=== PATIENT | female | born 1950 | race Two or more races ===

== ENCOUNTER 2023-03-31 08:42 | Outpatient (REF) | payer OTHER, SELFPAY ==
[2023-03-31 10:02] LABS: Alanine Aminotransferase 14 U/L (0-31); Albumin Level 4.1 g/dL (3.5-5.0); Alkaline Phosphatase 63 U/L (39-117); Anion Gap 11 (12-20); Aspartate Amino Transferase 21 U/L (5-31); Bilirubin Direct 0.1 mg/dL (0.0-0.5); Bilirubin Total 0.3 mg/dL (0.0-1.0); Blood Urea Nitrogen 12 mg/dL (9-16); Calcium 9.4 mg/dL (8.4-10.2); Carbon Dioxide 29 mmol/L (22-29); Chloride 111 mmol/L (96-108); Estimated Glomerular Filt Rate > 60; Glucose Random 76 mg/dL (60-115); Potassium 3.5 mmol/L (3.3-5.1); Sodium 147 mmol/L (135-145); Total Protein 7.3 g/dL (6.5-8.0)
[2023-03-31 10:24] LABS: Syphilis Screen Nonreactive (Nonreactive)
[2023-03-31 10:25] LABS: Erythrocyte Sedimentation Rate 18 MM/HR (0-20)
[2023-03-31 10:37] LABS: Folate 10.2 ng/mL (> or = 4.0); Vitamin B12 236 pg/mL (200-900)
[2023-04-02 05:33] LABS: Lyme Abs Screen <0.90 index
[2023-04-06 12:57] LABS: Anti Nuclear Antibody Screen NEGATIVE (NEGATIVE)
== END 2023-03-31 08:43 | disposition home or self-care (01) ==
LOC: HO.LAB 08:42
PROVIDERS: Visit Provider Psychiatry & Neurology Neurology
DX: G93.40 Encephalopathy, unspecified (principal)
CPT/HCPCS: 36415; 80048; 80076; 82607; 82746; 85652; 86038; 86617; 86618; 86780

== ENCOUNTER 2024-12-16 09:45 | Outpatient (AMB) | payer OTHER, SELFPAY ==
--- NOTE | 2024-12-16 09:49 | MHC.OFFVIS ---
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 She was noted to be confused and forgetful and keeping the stove on when family decided to move her here for safety reasons. Since then, she has progressed with more of same symptoms of forgetfulness, confusion, difficulty speaking or coming up with right words, and inability to maintain a conversation with behavioral symptoms), and restless leg syndrome. She was living here with her daughter. She went to [place] to visit her son in 04/2024. While there, she needed emergency surgery where she needed colostemy in 07/2024, complicated by ?pneumonia and PE, and was on vent for period of time. After coming off vent, she had psychosis and did not sleep for weeks. She went to two rehabs in [place] before returning to [place] in 09/2024. Memory has significantly declined since then. She was sometimes getting her daughter and granddaughter mixed up, and had trouble with names. She needed assistance with dressing, or else she put clothes on backward or inside out, and assistance with bathing. She had trouble coming up with and getting stuck with words. She was going to day program Thursday to Thursday, which she enjoyed. She was using walker there, no falls. She sometimes wanders around the house, but does not try to leave. She failed hearing test and they were in process of getting hearing aids. Mood was generally okay, but has some occasional irritability. Her dose of quetiapine was increased to twice a day. If she did not have quetiapine in the morning, she was more irritable and would talk to herself or the doe. She was occasionally incontinent of urine at night, using depends. Sleep was okay. [facility], [facility] Medical History (Updated 12/16/24 @ 09:55 by Alyson Villalobos CNP) RLS (restless legs syndrome) Alzheimer dementia Paraparesis Depression with anxiety Encephalopathy Review of Systems Const Denies chills, Denies daytime sleepiness, Denies difficulty sleeping, Denies fatigue, Denies fever(s), Denies frequent falls, Denies headache(s), Denies increased appetite, Denies poor appetite, Denies snoring, Denies weakness, Denies weight gain and Denies weight loss Eyes Denies loss of vision ENT Denies vertigo, Denies dizziness and Denies headache(s) Card Denies chest pain at rest, Denies chest pain with activity, Denies syncope, Denies leg edema and Denies palpitations Resp Denies snoring GI Denies constipation, Denies heartburn, Denies diarrhea and Denies nausea Denies urinary frequency, Denies urinary incontinence and Denies urinary urgency Musc Denies abnormal gait, Denies numbness and Denies tingling Skin/Breast Denies dry skin and Denies rash Neuro Denies abnormal gait, Denies vertigo, Denies dizziness, Denies syncope, Denies frequent falls, Denies headache(s), Denies lack of coordination, Denies loss of vision, Reports memory loss, Denies numbness, Reports restless legs, Denies seizure-like activity, Denies tingling, Denies paresthesias, Denies tremor(s) and Denies weakness Psych Denies anxiety, Denies depression, Denies auditory hallucinations, Reports memory loss, Denies visual hallucinations and Denies suicidal ideation Endo Denies fatigue and Denies palpitations Physical Exam Const Other: General Appearance:? normal, in no acute distress. Skin:? no rashes, no significant birthmarks. Heart:? S1, S2 normal, no murmurs. Lungs:? clear anteriorly and posteriorly. Extremities:? no edema. Psych:? alert, cooperative with exam. Neuro Other: Mental Status:?Affect is okay. She was able to tell me that she was here with her daughter and her daughter's name. She was able to tell me her age and her month and date. Cranial Nerves:?Pupils are equal, round and reactive to light. External occular muscles are intact. Visual peterson are full. Face is symmetrical. Facial sensations are normal. Tongue is midline. Palate elevates symmetrically. Shoulder shrugging is normal. Hearing to bedside conversation is normal. Motor Examination:?DTRs trace to 1+ in upper extremities, 3+ in knees and ankles with flexor plantars. Harris sign absent. Sensory Exam:?....? Coordination:?No ataxia,?no titubation.? Gait Exam: Within normal limits. Cerebellar Signs:?[id number] is okay. Extrapyramidal System:?No tremor, rigidity with normal facial expressions.? Pronator Drift:?Not present.? Involuntary Movements:?No tremors seen.? Speech:?Normal.? Assessment & Plan Assessment & Plan (1) Alzheimer dementia: Code(s): G30.9 - Alzheimer's disease, unspecified; F02.80 - Dementia in other diseases classified elsewhere, unspecified severity, without behavioral disturbance, psychotic disturbance, mood disturbance, and anxiety Category: Medical Qualifiers: Alzheimer's disease onset: unspecified onset Dementia severity: unspecified severity Dementia behavioral or psychological symptom: with other behavioral disturbance Qualified Code(s): G30.9 - Alzheimer's disease, unspecified; F02.818 - Dementia in other diseases classified elsewhere, unspecified severity, with other behavioral disturbance Plan: Increase memantine 10mg 1 tablet twice a day. Continue quetiapine 25mg 1 tablet twice a day. Stay physically and socially active. (2) RLS (restless legs syndrome): Code(s): G25.81 - Restless legs syndrome Category: Medical Plan . Medications: New memantine 10 mg PO BID 180 tabs 1RF 90 days Coding Level of Care Code Est Pt Level 4 (71235) Diagnoses Alzheimer's dementia with other behavioral disturbance, unspecified dementia severity, unspecified timing of dementia onset G30.9; F02.818 Alzheimer's disease onset: unspecified onset Dementia severity: unspecified severity Dementia behavioral or psychological symptom: with other behavioral disturbance RLS (restless legs syndrome) G25.81
--- OUTSIDE RECORDS SUMMARY | 2024-12-16 09:54 | XMS_ITS | Clinical Summary ---
Author Organization [facility] [address] [facility] Address [address] [place], [place] Phone Care Team Providers Care Mud Jack Nozzle Worker Name Role Phone Suzanne Alonso MD Primary Care Provider [phone] Allergies No known active allergies Medications cyanocobalamin (VITAMIN B-12) 1,000 mcg tabletIndicati ons:B12 deficiency TAKE 1 TABLET BY MOUTH EVERY DAY 90 tablet 1 04/01/20 24 Active atorvastatin (LIPITOR) 10 mg tablet TAKE 1 TABLET BY MOUTH EVERY DAY 90 tablet 1 04/07/20 24 Active QUEtiapine (SEROquel) 25 mg tablet Take 1 tablet (25 mg total) by mouth 2 (two) times a day. Active memantine (NAMENDA) 5 mg tablet Take 1 tablet (5 mg total) by mouth 2 (two) times a day. for 90 days Active calcium carbonate/mag carb (CALCIUM CARB-MAGNESIUM CARB ORAL) Take by mouth. Acti ve latanoprost (XALATAN) 0.005 % ophthalmic solution Administer 1 drop into both eyes 1 (one) time each day. at bedtime 08/17/19 25 Active ketorolac (ACULAR) 0.5 % ophthalmic solution 1 drop 4 (four) times a day. Active Eliquis 5 mg tablet TAKE 1 TABLET BY MOUTH TWICE A DAY 60 tablet 2 11/16/19 25 Active DULoxetine (CYMBALTA) [address] capsule TAKE 1 CAPSULE BY MOUTH EVERY DAY 90 capsule 1 11/29/19 Active DULoxetine (CYMBALTA) [address] capsule TAKE 1 CAPSULE BY MOUTH EVERY DAY 90 capsule 1 06/10/19 025 Discontinued Active Problems Problem Noted Date Diagnosed Date Absence of bladder continence 10/25/2024 Moderate Alzheimer's dementia ([facility] V24, [facility] V28) 10/25/2024 Acute pulmonary embolism ([facility] V24, [facility] V 28) 10/25/2024 Diverticulitis of intestine with perforation 02/2025 Colostomy, evaluate ([facility] V24, [facility] V28) 0 10/04/2024 Colostomy care ([facility] V24, [facility] V28) 2024 Overview (10/25/2024): Had a Colostomy in [place] on 07/16/24 Bilateral renal cysts 06/11/2023 Hyperlipidemia 03/30/2023 Polyneuropathy 12/22/2022 Encounters Date Type Department Care Team Description 12/07/2024 8:45 AM EDT Office Visit [facility] [address] [place] [phone] Tc Mahmood PA Open wound of anterior abdominal wall, subsequent encounter (Primary Dx); Non-pressure chronic ulcer of skin of other sites with fat layer exposed ([facility] V24, [facility] V28) 12/06/2024 3:00 PM EDT Office Visit [facility] Hemat[facility] Oncology [address] [place] [phone] Lenin Ngo MD Acute pulmonary embolism, unspecified pulmonary embolism type, unspecified whether acute cor pulmonale present ([facility] V24, [facility] V28) 11/29/2024 Telephone Adult Medicine [address] [phone] Arnoldo Cardenas LPN 11/22/2024 3:30 PM EDT Office Visit [facility] [address] [place] [phone] Tc Mahmood PA Open wound of anterior abdominal wall, initial encounter (Primary Dx); Non-pressure chronic ulcer of skin of other sites with fat layer exposed ([facility] V24, [facility] V28) 11/22/2024 Telephone Adult Medicine [address] [phone] Suzanne Alonso MD VNA 11/11/2024 12:45 PM EDT Consult [facility] [address] [place] [phone] Tc Mahmood PA Non-pressure chronic ulcer of skin of other sites with fat layer exposed ([facility] V24, [facility] V28) (Primary Dx); Open wound of anterior abdominal wall, initial encounter 11/03/2024 9:15 AM EDT Clinical Support General Surgery [facility] [address] [place] [phone] Joanie Garcia, RN Colostomy care ([facility] V24, [facility] V28) (Primary Dx); Parastomal hernia without obstruction or gangrene 10/25/2024 12:30 PM EDT Office Visit Adult [address] [phone] Suzanne Alonso MD Mixed hyperlipidemia (Primary Dx); Acute pulmonary embolism, unspecified pulmonary embolism type, unspecified whether acute cor pulmonale present ([facility] V24, [facility] V28); Moderate Alzheimer's dementia with other behavioral disturbance, unspecified timing of dementia onset ([facility] V24, [facility] V28); Other urinary incontinence 10/14/2024 Telephone Adult Medicine [address] [phone] Suzanne Alonso MD VNA 10/11/2024 Telephone Adult Medicine [address] [phone] Deanna Valdez LPN Fitting for DME (Form from [place] ? Pt brought in ) 10/06/2024 Telephone Adult Medicine [address] [place] [phone] Suzanne Alonso MD Forms/questionnaires (RMV) 10/06/[address] [phone] Suzanne Alonso MD Forms/questionnaires (FLMA) 10/06/[address] [phone] Suzanne Alonso MD Forms/questionnaires 10/04/2024 4:15 PM EDT Consult General Surgery - [address] [place] [phone] Calvin Emery MD Open wound of anterior abdominal wall, initial encounter (Primary Dx); Colostomy, evaluate ([facility] V24, [facility] V28) 09/27/2024 12:30 PM EDT Office Visit [address] [phone] Suzanne Alonso MD Hospital discharge follow-up (Primary Dx); B12 deficiency; Colon perforation ([facility] V24, [facility] V28); Mixed hyperlipidemia; Vitamin D deficiency; Iron deficiency anemia, unspecified iron deficiency anemia type; Colostomy, evaluate ([facility] V24, [facility] V28); Bacterial infection due to Bacteroides fragilis; Peritonitis due to abscess ([facility] V24, [facility] V28); Acute pulmonary embolism, unspecified pulmonary embolism type, unspecified whether acute cor pulmonale present ([facility] V24, [facility] V28); Pneumonia due to infectious organism, unspecified laterality, unspecified part of lung 09/27/[address] [phone] Arnoldo Cardenas LPN vna 09/27/[address] [phone] Suzanne Alonso MD from Last 3 Months Immunizations Name Administration Dates Next Due Influenza trivalent, 0.5mL ( Fluad) 65yo and older 01/24/2024,03/04/2023 Moderna (age 6mo & older) Bi valent, COVID-19, 0.5 mL or 0.25 mL dosage 09/15/2022,09/05/2021,03/26/2021, 021,06/21/2020 Surgical History Surgery Date Site/Laterality Comments OTHER SURGICAL HISTORY PROCEDURE: DENIES PREVIOUS SURGERY CARDIAC CATH IR EXAM 05/18/2017 - 05/17/2018 BOWEL RESECTION 05/18/2024 - 05/17/2025 COLOSTOMY 05/18/2024 - 05/17/2025 Medical History Medical History Date Comments Polyneuropathy DX:Polyneuropath y Dementia ([facility] V24, [facility] V28) High cholesterol Glaucoma Diverticulosis 2024 Sepsis ([facility] V24, [facility] V28) 2024 Family History Medical History Relation Name Comments Heart disease Mother thyroid issues Diabetes Other HTN Other Relation Name Status Comments Father Mother Other Social History Tobacco Use Types Packs/Day Years Used Date Smoking Tobacco: Never Smokeless Tobacco: Never Tobacco Cessation:Counseling Given: Not Answered Alcohol Use Standard Drinks/Week Comments Not Currently 0 (1 standard drink = 0.6 oz pur e alcohol) Housing Instability Answer Date Recorde d Are you worried that in the next 2 months you may not have stable housing? No 09/21/2024 Food Access & Nutrition Answer Date Rec orded Do you have access to a vari ety of food including fruits and vegetables? Yes 09/21/2024 Access to Healthcare Answer Date Record ed Within the last 3 months, thomas simmons many times did you visit the emergency department for your medical care? 1 09/21/2024 Health Literacy Answer Date Recorded How often do you need to hav e someone help you when you read instructions, pamphlets, or other written material from your doctor or pharmacy? Always 09/21/2024 Caregiver: How often do you need to have someone help you when you read instructions, pamphlets, or other written material from your doctor or pharmacy? Not on file 09/21/2024 Financial Risk Answer Date Recorded How hard is it for you to pa y for the very basics like food, housing, medical care, and air conditioning / heating? Not very hard 09/21/2024 Transportation Answer Date Recorded Has the lack of transportati on kept you from meetings, work, or from getting things needed for daily living? No Has the lack of transportati on kept you from medical appointments or from getting medications? No 09/21/2024 Social Isolation Answer Date Recorded How often do you feel lonely or isolated from th ose around you? Never 09/21/2024 Food Risk Answer Date Recorded Within the past 12 months we worried whether our food would run out before we got money to buy more. Never true 09/21/2024 Within the past 12 months th e food we bought just didn't last and we didn't have money to get more. Never true 09/21/2024 Dependent Care Answer Date Recorded Do you need help finding or paying for care for your loved ones. For example, child care team lead or elderly care for an older adult? No 09/21/2024 Education Answer Date Recorded Do you think completing more education or training, like finishing a GED, going to college, or learning a trade, would be helpful for you? No 09/21/2024 Employment and Income Answer Date Recor ded During the last four weeks, have you been actively looking for work? No 09/21/2024 Living Situation Answer Date Recorded What is your living situation? 0 09/21/2024 Comments No Sex and Gender Information Value Date Recorded Sex Assigned at Not on file Legal Sex Female 8:14 PM EST Gender Identity Not on file Sexual Orientation Not on file Obstetrics History Last Filed Vital Signs Vital Sign Reading Time Taken Comments Blood Pressure 113/58 12/06/2024 3:03 PM EDT Pulse 72 12/07/2024 8:51 AM EDT Temperature 36.2 C (97.1 F) 12/07/2024 8:51 AM EDT Respiratory Rate 18 12/07/2024 8:51 AM EDT Oxygen Saturation 100% 12/07/2024 8:51 AM EDT Inhaled Oxygen Concentration - - Weight 63.5 kg (140 lb) 12/06/2024 3:03 PM EDT Height 154.9 cm (5' 1 ) 12/06/2024 3:03 PM EDT Body Mass Index 26.45 12/06/2024 3:03 PM EDT Plan of Treatment Upcoming Encounters Date Type Department Care Team (Late st Contact Info) Description 12/20/2024 9:00 AM EDT Office Visit Adult Medicine [facility] [address] [place] [phone] Billy Alcocer PA [address] [place] [address] 12/29/2024 9:00 AM EDT Clinical Support [facility] [address] [place] [phone] 02/18/2025 1:00 PM EDT Appointment Radiology Department - [address] [phone] Health Maintenance Due Date Last Done Comments Pneumococcal Vaccine: 50+ Years (1 of 1 - PCV) 2001 Zoster Vaccines (1 of 2) 2001 RSV Immunization Adult Patients (1 - Risk 60-74 years 1-dose series) 2011 Hepatitis C Screening 06/11/2023 Medicare Annual Wellness Visit 06/11/2023 COVID-19 Vaccine ( season) 2024 03/04/2023, 09/15/2022, 09/05/2021, Additional history exists Influenza Vaccine (#1) 2025 01/24/2024, 2022 Social Influencers of Health Screening 09/21/2025 09/21/2024 Falls Risk Assessment 11/11/2025 11/11/2024 Breast Cancer Screening 01/29/2026 01/30/20 24, 01/30/2024, 01/03/2023 Cholesterol Screening (Lipid Panel) 09/30/2029 09/30/2024, 01/27/2024, 01/27/2024 Colorectal Cancer Screening: Colonoscopy 06/03/2033 06/03/2023 Osteoporosis Screening (Bone Density Screening) 10/13/2033 10/14/2023, 10/14/2023 DTaP,Tdap,and Td Vaccines (2 - Td or Tdap) 01/26/2034 01/27/2024 Depression Screening Completed 11/11/2024 HIB Vaccines Aged Out No longer eligi ble based on patient's age to complete this topic HPV Vaccines Aged Out No longer eligi ble based on patient's age to complete this topic Hepatitis A Vaccines Aged Out No long er eligible based on patient's age to complete this topic Hepatitis B Vaccines Aged Out No long er eligible based on patient's age to complete this topic IPV Vaccines Aged Out No longer eligi ble based on patient's age to complete this topic MMR Vaccines Aged Out No longer eligi ble based on patient's age to complete this topic Meningococcal ACWY Vaccine Aged Out N o longer eligible based on patient's age to complete this topic Meningococcal B Vaccine Aged Out No l onger eligible based on patient's age to complete this topic RSV Immunization Patients Under 20 months Aged Out No longer eligible based on patient's age to complete this topic Varicella Vaccines Aged Out No longer eligible based on patient's age to complete this topic Goals Goal Patient Goal Type Associated Problems Recent Progress Patient-Stated? Author Decrease Wound Volume by X% by date (in notes) Care Plan Impaired Tissue Improving( 9:01 AM EDT) No Rachell Lewis RN Patient and Caregiver Understand Wound Care Education Care Plan Impaired Tissue On track( 9:01 AM EDT) No Rachell Lewis RN Wound volume breakdown reduced by X% by week 4 Care Plan Impaired Tissue No Rachell Lewis RN Wound volume breakdown reduced by X% by week 8 Care Plan Impaired Tissue No Rachell Lewis RN Wound volume breakdown reduced by X% by week 12 Care Plan Impaired Tissue No Rachell Lewis RN Quit using tobacco (cigarettes, smokeless, etc) Care Plan Education needed on impact of smoking on wound No Rachell Lewis RN Reduce tobacco use (cigarettes, smokeless, etc) Care Plan Education needed on impact of smoking on wound No Rachell Lewis RN Decrease Wound Volume by X% by date (in notes) Care Plan Education needed on impact of smoking on wound No Rachell Lewis RN Patient and Caregiver Understand Wound Care Education Care Plan Education needed related to ulceration/compr omised skin integrity. No Rachell Lewis RN Procedures Procedure Name Priority Date/Time Associated Diagnosis Comments INTERFERON GAMMA INTERPRETATION Routine 11/15/2024 4:03 PM EDT Screening-pulmonary TB INTERFERON GAMMA ANTIGEN 2 Routine 11/15/2024 4:03 PM EDT Screening-pulmonary TB INTERFERON GAMMA ANTIGEN 1 Routine 11/15/2024 4:03 PM EDT Screening-pulmonary TB INTERFERON GAMMA MITOGEN Routine 11/15/2024 4:03 PM EDT Screening-pulmonary TB INTERFERON GAMMA NIL Routine 11/15/2024 4:03 PM EDT Screening-pulmonary TB INTERFERON GAMMA FOR TB, QUALITATIVE Routine 11/15/2024 4:03 PM EDT Screening-pulmonary TB DEBRIDEMENT Routine 11/11/2024 12:45 PM EDT Open wound of anterior abdominal wall, initial encounter Non-pressure chronic ulcer of skin of other sites with fat layer exposed (CMS/HCC V24, CMS/HCC V28) CBC WITH AUTO DIFFERENTIAL Routine 09/30/2024 8:49 AM EDT Colon perforation (CMS/HCC V24, CMS/HCC V28) CBC AND DIFFERENTIAL Routine 09/30/2024 8:49 AM EDT Colon perforation (CMS/HCC V24, CMS/HCC V28) COMPREHENSIVE METABOLIC PANEL Routine 09/30/2024 8:49 AM EDT Colon perforation (CMS/HCC V24, CMS/HCC V28) LIPID PANEL WITH REFLEX TO DIRECT LDL Routine 09/30/2024 8:49 AM EDT Mixed hyperlipidemia VITAMIN D 25 HYDROXY Routine 09/30/2024 8:49 AM EDT Vitamin D deficiency VITAMIN B12 Routine 09/30/2024 8:49 AM EDT B12 deficiency FERRITIN Routine 09/30/2024 8:49 AM EDT Iron deficiency anemia, unspecified iron deficiency anemia type IRON AND TIBC Routine 09/30/2024 8:49 AM EDT Iron deficiency anemia, unspecified iron deficiency anemia type SCREENING MAMMOGRAPHY BI 2-VIEW BREAST INC CAD Routine 01/30/2024 7:18 AM EDT Encounter for screening mammogram for malignant neoplasm of breast BEBA DEXA AXIAL SKELETON Routine 10/14/2023 5:12 PM EDT Other specified disorders of bone density and structure, right thigh HM COLONOSCOPY Routine 06/03/2023 from Last 3 Months or Most Recently Relevant to Health Maintenance Results * Interferon gamma interpretation (11/15/2024 4:03 PM EDT) [facility] Quantiferon Plus Interpretation Negative Negative LAB CHEMISTRY METHOD 11/17/2024 12:36 PM EDT [facility] Blood Venous blood specimen / Unknown Venipuncture / Unknown 11/15/2024 4:03 PM EDT 11/15/2024 4:03 PM EDT us Suzanne Alonso MD LAB BLOOD ORDERABLES Final Resul t Performing Organization Address City/[facility]/ZIP Co de Phone Number [facility] [address] [place] [address], [place] [phone] * Interferon gamma antigen 2 (11/15/2024 4:03 PM EDT) Blood Venous blood specimen / Unknown Venipuncture / Unknown 11/15/2024 4:03 PM EDT 11/15/2024 4:03 PM EDT us Suzanne Alonso MD LAB BLOOD ORDERABLES Final Resul t [facility] [address] [place] [address], [place] [phone] * Interferon gamma antigen 1 (11/15/2024 4:03 PM EDT) Blood Venous blood specimen / Unknown Venipuncture / Unknown 11/15/2024 4:03 PM EDT 11/15/2024 4:03 PM EDT us Suzanne Alonso MD LAB BLOOD ORDERABLES Final Resul t Performing Organization Address [facility] Co de Phone Number [facility] [address] [place] [address], * Interferon gamma mitogen (11/15/2024 4:03 PM EDT) Blood Venous blood specimen / Unknown Venipuncture / Unknown 11/15/2024 4:03 PM EDT 11/15/2024 4:03 PM EDT Suzanne Alonso MD LAB BLOOD ORDERABLES Final Resul t Performing Organization Address [facility] Co de Phone Number [facility] [address] [place] [address], [place] [phone] * Interferon gamma NIL (11/15/2024 4:03 PM EDT) Blood Venous blood specimen / Unknown Venipuncture / Unknown 11/15/2024 4:03 PM EDT 11/15/2024 4:03 PM EDT Suzanne Alonso MD LAB BLOOD ORDERABLES Final Resul t Performing Organization Address [facility] de Phone Number [facility] [address] [place] [address], [place] [phone] * Debridement Open Surgical Incision Lower;Mid Abdomen (11/11/2024 12:45 PM EDT) Narrative Jerome Reinoso MD - 11/11/2024 12:45 PM EDT HERMELINDA Lozano 11/11/2024 2:04 PM Debridement Open Surgical Incision Lower;Mid Abdomen Performed by: HERMELINDA Lozano Authorized by: HERMELINDA Lozano Associated wounds: Wound Open Surgical Incision 11/11/24 Abdomen Lower;Mid Consent: Consent obtained: Verbal Consent given by: Patient Risks discussed: Yes Time out: Immediately prior to the procedure a time out was called Debridement Details: Performed by: HERMELINDA Type: surgical Level: subcutaneous tissue Pain control: Lidocaine 4% Severity of Tissue Pre Debridement: Fat layer exposed Severity of Tissue Post Debridement: Fat layer exposed Time taken: 11/11/2024 1:18 PM Length (cm): 0.6 Width (cm): 0.4 Depth (cm): 1.3 Area (cm^2): 0.24 Time taken: 11/11/2024 1:19 PM Length (cm): 0.6 Width (cm): 0.4 Depth (cm): 1.3 Percent Debrided (%): 50 Surface Area (cm^2): 0.24 Area Debrided (cm^2): 0.12 Volume (cm^3): 0.31 Tissue and other material debrided: subcutaneous tissue Devitalized tissue debrided: biofilm and slough Instrument: Curette Amount of bleeding: none Hemostasis obtained with: Not applicable Procedural pain: 0 Post-procedural pain: 0 Response to treatment: Procedure was tolerated well us Tc SHEN IN CLINIC/BEDSIDE ORDERABLE S Final Result * Lipid panel with reflex to direct LDL (09/30/2024 8:49 AM EDT) Cholesterol 127 0 - 200 mg/dL LAB CHEMISTRY METHOD 09/30/2024 1:13 PM [facility] Triglycerides 129 0 - 150 mg/dL LAB CHEMISTRY METHOD 09/30/2024 1:13 PM [facility] HDL 45 >=40 mg/dL LAB CHEMISTRY METHOD 09/30/2024 1:13 PM [facility] LDL Calculated 56 0 - 100 mg/dL LAB CHEMISTRY METHOD 09/30/2024 1:13 PM [facility] VLDL Cholesterol Suresh 25.8 mg/dL LAB CHEMISTRY METHOD 09/30/2024 1:13 PM [facility] Non HDL Chol. (LDL+VLDL) 82 <145 mg/dL LAB CHEMISTRY METHOD 09/30/2024 1:13 PM [facility] Chol/HDL Ratio 2.8 0.0 - 4.4 LAB CHEMISTRY METHOD 09/30/2024 1:13 PM [facility] Blood Venous blood specimen / Unknown Venipuncture / Unknown 09/30/2024 8:49 AM EDT 09/30/2024 8:49 AM EDT us Suzanne Alonso MD LAB BLOOD ORDERABLES Final Resul t [facility] [address] [place] [address], [place] [phone] * (ABNORMAL) CBC auto differential (09/30/2024 8:49 AM EDT) WBC 8.0 4.8 - 10.8 K/mcL LAB HEMETOLOGY METHOD 09/30/2024 10:47 AM EDT [facility] RBC 4.00 3.80 - 4.80 M/[facility] LAB HEMETOLOGY METHOD 09/30/2024 10:47 AM [facility] Hemoglobin 10.4(L) 11.5 - 16.0 g/dL LAB HEMETOLOGY METHOD 09/30/2024 10:47 AM [facility] Hematocrit 33.1(L) 35.0 - 47.0 % LAB HEMETOLOGY METHOD 09/30/2024 10:47 AM T [facility] MCV 83.0 79.0 - 98.0 FL LAB HEMETOLOGY METHOD 09/30/2024 10:47 AM [facility] MCH 26.1(L) 27.0 - 32.0 pcg LAB HEMETOLOGY METHOD 09/30/2024 10:47 AM T [facility] MCHC 31.4(L) 32.0 - 37.0 g/dL LAB HEMETOLOGY METHOD 09/30/2024 10:47 AM [facility] RDW 18.2(H) 11.0 - 15.0 % LAB HEMETOLOGY METHOD 09/30/2024 10:47 AM [facility] Platelets 389 130 - 400 K/mcL LAB HEMETOLOGY METHOD 09/30/2024 10:47 AM [facility] MPV 9.9 7.0 - 11.0 FL LAB HEMETOLOGY METHOD 09/30/2024 10:47 AM [facility] NRBC 0.3 <1.0 % LAB HEMETOLOGY METHOD 09/30/2024 10:47 AM [facility] NRBC Absolute 0.02 <0.10 K/mcL LAB HEMETOLOGY METHOD 09/30/2024 10:47 AM [facility] Neutrophils Relative 37.5 % LAB HEMETOLOGY METHOD 09/30/2024 10:47 AM [facility] Lymphocytes Relative 50.6 % LAB HEMETOLOGY METHOD 09/30/2024 10:47 AM [facility] Monocytes Relative 9.8 % LAB HEMETOLOGY METHOD 09/30/2024 10:47 AM [facility] Eosinophils Relative 1.4 % LAB HEMETOLOGY METHOD 09/30/2024 10:47 AM [facility] Basophils Relative 0.4 % LAB HEMETOLOGY METHOD 09/30/2024 10:47 AM [facility] Immature Granulocytes Relative 0.3 % LAB HEMETOLOGY METHOD 09/30/2024 10:47 AM [facility] Neutrophils Absolute 3.01 1.50 - 7.00 K/mcL LAB HEMETOLOGY METHOD 09/30/2024 10:47 AM [facility] Lymphocytes Absolute 4.04 1.00 - 5.00 K/mcL LAB HEMETOLOGY METHOD 09/30/2024 10:47 AM [facility] Monocytes Absolute 0.78 0.20 - 1.00 K/mcL LAB HEMETOLOGY METHOD 09/30/2024 10:47 AM [facility] Eosinophils Absolute 0.11 0.00 - 0.50 K/mcL LAB HEMETOLOGY METHOD 09/30/2024 10:47 AM EDT [facility] Basophils Absolute 0.03 0.00 - 0.20 K/mcL LAB HEMETOLOGY METHOD 09/30/2024 10:47 AM EDT [facility] Immature Granulocytes Absolute 0.02 0.00 - 0.03 K/mcL LAB HEMETOLOGY METHOD 09/30/2024 10:47 AM EDT [facility] Blood Venous blood specimen / Unknown Venipuncture / Unknown 09/30/2024 8:49 AM EDT 09/30/2024 8:49 AM EDT Suzanne Alonso MD LAB BLOOD ORDERABLES Final Resul t Performing Organization Address [facility]/ZIP Co de Phone Number [facility] [address] [place] [address], [place] [phone] * (ABNORMAL) Iron and TIBC (09/30/2024 8:49 AM EDT) Iron 42 40 - 150 mcg/dL LAB CHEMISTRY METHOD 09/30/2024 12:49 PM EDT [facility] TIBC 243(L) 250 - 450 mcg/dL LAB CHEMISTRY METHOD 09/30/2024 12:49 PM EDT [facility] Iron Saturation 17 15 - 50 % LAB CHEMISTRY METHOD 09/30/2024 12:49 PM EDT [facility] Blood Venous blood specimen / Unknown Venipuncture / Unknown 09/30/2024 8:49 AM EDT 09/30/2024 8:49 AM EDT Suzanne Alonso MD LAB BLOOD ORDERABLES Final Resul t Performing Organization Address City/[facility]/ZIP Co de Phone Number [facility] [address] [place] [address], [place] [phone] * Vitamin D 25 hydroxy (09/30/2024 8:49 AM EDT) Pathologist [facility] Vit D, 25-Hydroxy 43.1 30.0 - 80.0 ng/mL LAB CHEMISTRY METHOD 09/30/2024 2:26 PM EDT [facility] Blood Venous blood specimen / Unknown Venipuncture / Unknown 09/30/2024 8:49 AM EDT 09/30/2024 8:49 AM EDT us Suzanne Alonso MD LAB BLOOD ORDERABLES Final Resul t Performing Organization Address City/[facility]/ZIP Co de Phone Number [facility] [address] [place] [address], [place] [phone] * Ferritin (09/30/2024 8:49 AM EDT) Pathologist [facility] Ferritin 172 8 - 252 ng/mL LAB CHEMISTRY METHOD 09/30/2024 1:13 PM EDT [facility] Blood Venous blood specimen / Unknown Venipuncture / Unknown 09/30/2024 8:49 AM EDT 09/30/2024 8:49 AM EDT us Suzanne Alonso MD LAB BLOOD ORDERABLES Final Resul t Performing Organization Address [facility]/ZIP Co de Phone Number [facility] [address] [place] [address], [place] [phone] * Vitamin B12 (09/30/2024 8:49 AM EDT) [facility] Vitamin B-12 506 250 - 900 pcg/mL LAB CHEMISTRY METHOD 09/30/2024 1:13 PM EDT [facility] Blood Venous blood specimen / Unknown Venipuncture / Unknown 09/30/2024 8:49 AM EDT 09/30/2024 8:49 AM EDT us Suzanne Alonso MD LAB BLOOD ORDERABLES Final Resul t [facility] [address] [place] [address], * Comprehensive metabolic panel (09/30/2024 8:49 AM EDT) Sodium 144 133 - 145 mmol/L LAB CHEMISTRY METHOD 09/30/2024 1:13 PM [facility] Potassium 3.7 3.5 - 5.5 mmol/L LAB CHEMISTRY METHOD 09/30/2024 1:13 PM [facility] Chloride 109 96 - 110 mmol/L LAB CHEMISTRY METHOD 09/30/2024 1:13 PM [facility] CO2 29 21 - 32 mmol/L LAB CHEMISTRY METHOD 09/30/2024 1:13 PM [facility] Anion Gap 6 3 - 11 LAB CHEMISTRY METHOD 09/30/2024 1:13 PM [facility] Glucose 91 70 - 100 mg/dL LAB CHEMISTRY METHOD 09/30/2024 1:13 PM [facility] BUN 10 5 - 25 mg/dL LAB CHEMISTRY METHOD 09/30/2024 1:13 PM [facility] Creatinine 0.58 0.50 - 1.10 mg/dL LAB CHEMISTRY METHOD 09/30/2024 1:13 PM [facility] eGFR 96 >=60 mL/min/1. 73m2 LAB CHEMISTRY METHOD 09/30/2024 1:13 PM [facility] Comment:Calculation based on the Chronic Kidney Disease Epidemiology Collaboration (CKD-EPI) equation refit without adjustment for race. BUN/Creatinine Ratio 17.2 LAB CHEMISTRY METHOD 09/30/2024 1:13 PM [facility] Calcium 9.4 8.5 - 10.5 mg/dL LAB CHEMISTRY METHOD 09/30/2024 1:13 PM [facility] AST (SGOT) 19 10 - 42 unit/L LAB CHEMISTRY METHOD 09/30/2024 1:13 PM EDT [facility] ALT (SGPT) 24 10 - 60 unit/L LAB CHEMISTRY METHOD 09/30/2024 1:13 PM EDT [facility] Alkaline Phosphatase 61 42 - 121 unit/L LAB CHEMISTRY METHOD 09/30/2024 1:13 PM EDT [facility] Total Protein 7.1 6.0 - 8.0 g/dL LAB CHEMISTRY METHOD 09/30/2024 1:13 PM EDT [facility] Albumin 3.3 3.2 - 5.0 g/dL LAB CHEMISTRY METHOD 09/30/2024 1:13 PM EDT [facility] Total Bilirubin 0.3 0.0 - 1.4 mg/dL LAB CHEMISTRY METHOD 09/30/2024 1:13 PM EDT [facility] Blood Venous blood specimen / Unknown Venipuncture / Unknown 09/30/2024 8:49 AM EDT 09/30/2024 8:49 AM EDT us Suzanne Alonso MD LAB BLOOD ORDERABLES Final Resul t [facility] [address] [place] [address], * SCREENING MAMMOGRAPHY BI 2-VIEW BREAST INC CAD (01/30/2024 7:18 AM EDT) Anatomical Region Laterality Modality Radiographic Breanne ging 01/03/2023 12:1 9 PM EDT Narrative 02/01/2024 5:11 PM EDT This is a summary report. The complete report is available in the patient's medical record. If you cannot access the medical record, please contact the sending organization for a detailed fax or copy. BILATERAL 3D DIGITAL SCREENING MAMMOGRAM History: Routine screening. No current breast complaints. Comparison: Mammogram from 01/03/2023 Technique: Bilateral full-field digital 3D mammography was performed using standard CC and MLO projections CAD was used to evaluate this mammogram. Findings: Density: There are scattered areas of fibroglandular density-B RIGHT: No suspicious masses, groups of microcalcification or areas of architectural distortion identified. Stable typically benign parenchymal asymmetries LEFT: No suspicious masses, groups of microcalcifications or areas of architectural distortion identified. Stable typically benign parenchymal asymmetries IMPRESSION: : 1. No mammographic evidence of malignancy. BI-RADS Category 2 benign findings Recommendation: Routine annual screening mammography is recommended [address] [address] Procedure Note Gemma Spivey MD - 03/02/2024 This is a summary report. The complete report is available in thepatient's medical record. If you cannot access the medical record, pleasecontact the sending organization for a detailed fax or copy. BILATERAL 3D DIGITAL SCREENING MAMMOGRAM History: Routine screening. No current breast complaints. Comparison: Mammogram from 01/03/2023 Technique: Bilateral full-field digital 3D mammography was performed usingstandard CC and MLO projections CAD was used to evaluate this mammogram. Findings: Density: There are scattered areas of fibroglandular density-B RIGHT: No suspicious masses, groups of microcalcification or areas ofarchitectural distortion identified. Stable typically benign parenchymalasymmetries LEFT: No suspicious masses, groups of microcalcifications or areas ofarchitectural distortion identified. Stable typically benign parenchymalasymmetries IMPRESSION: : 1. No mammographic evidence of malignancy. BI-RADS Category 2 benign findings Recommendation: Routine annual screening mammography is recommended [address] [address] Suzanne Alonso MD IMG XR PROCEDURES Final Result * BEBA DEXA AXIAL SKELETON (10/14/2023 5:12 PM EDT) Anatomical Region Laterality Modality Mammography 10/14/2023 2:59 PM EDT Narrative 10/14/2023 5:12 PM EDT [facility] Diagnostic Imaging Department [address] [place] [id number] Patient: MARYCHUY PAULSON /Age/Sex: 1950 - 73 - F Unit#: [id number] Location/Status: SPDIMAM/REG CLI Mnemonic/Ordering Site: MAMDEXAAX/SPMAM Ordering Physician: SUZANNE ALONSO MD [facility]eba Dexa Axial Skeleton - 10/14/23 - Report Status:Signed History: Low estrogen state due to menopause. Comparison: No comparison imaging. Findings: Bone densitometry is performed utilizing dual energy x-ray absorptiometry (DXA) in the [employer] unit. The lumbar spine and proximal femora are evaluated in the AP projection. The FRAX questionaire was completed. The results indicate low bone mass (osteopenia), with a right femoral neck T- score of -2.1. The Z score is -0.2, indicating bone mineral density within the range of normal for age. The detailed DEXA report will be mailed to the referring physician's office. DualFemur FRAX: 10-year Probability of Fracture: Major Osteoporotic 13.2 percent Hip 3.0 percent. IMPRESSION: Osteopenia. [id number] Dictating Physician: MEGHANA PAPPAS MD Electronically Signed by: MEGHANA PAPPAS MD Dic Date/Time: 10/14/231710 Sign date/Time: 10/14/231711 Procedure Note Meghana Pappas MD - 01/04/2024 [facility] Diagnostic Imaging Department [address] [place] [address] Patient: MARYCHUY PAULSON /Age/Sex: 1950 - 73 - F Unit#: [id number] Location/Status: SPDIMAM/REG CLI Mnemonic/Ordering Site: MAMDEXAAX/SPMAM Ordering Physician: SUZANNE ALONSO MD [facility] Dexa Axial Skeleton - 10/14/23 - Report Status:Signed History: Low estrogen state due to menopause. Comparison: No comparison imaging. Findings: Bone densitometry is performed utilizing dual energy x-ray absorptiometry(DXA) in the [employer] unit. The lumbar spine and proximal femora areevaluated in the AP projection. The FRAX questionaire was completed. The results indicate low bone mass (osteopenia), with a right femoral neckT- score of -2.1. The Z score is -0.2, indicating bone mineral density withinthe range of normal for age. The detailed DEXA report will be mailed to the referring physician's office. [employer]emur FRAX: 10-year Probability of Fracture: Major Osteoporotic 13.2 percent Hip 3.0 percent. IMPRESSION: Osteopenia. [id number] Dictating Physician: MEGHANA PAPPAS MD Electronically Signed by: MEGHANA PAPPAS MD Dic Date/Time: 10/14/23 171 Sign date/Time: 10/14/231711 Suzanne Alonso MD IM BI PROCEDURES Final Result * Colonoscopy (06/03/2023) Colonoscopy no interpretation , abstracted Anatomical Region Laterality Modality Other Historical Provider HEALTH MAINTENANCE Final Result from Last 3 Months or Most Recently Relevant to Health Maintenance Additional Health Concerns Active Problems Noted Date Diagnosed Date Impaired Tissue 11/11/2024 Education needed on impact of smoking on wound 0 11/11/2024 Education needed related to ulceration/compromised skin integrity. 11/11/2024 Insurance Member Subscriber Plan / Payer (Ef fective 2024-Present) Name:Marychuy Paulson Relation to Subscriber:Self Name:Marychuy Paulson Payer ID:[id number] Group ID:[id number] Type:Not on file Address: [place] [address] [place] [place] [id number] Care Teams Mud Jack Nozzle Worker Relationship Specialty Start Date End Date Suzanne Alonso MD [address] [place] [id number] PCP - General Internal Medicine 10/20/22
== END 2024-12-16 10:38 | disposition home or self-care (01) ==
LOC: HO.HSM 09:46
PROVIDERS: PCP Internal Medicine; Referring Provider Internal Medicine; Visit Provider Registered Nurse
DX: G30.9 Alzheimer's disease, unspecified (principal); F02.818 Dementia in other diseases classified elsewhere, unspecified severity, with other behavioral disturbance; G25.81 Restless legs syndrome
CPT/HCPCS: 99214

== ENCOUNTER → 2024-12-16 09:45 | Outpatient (BNVA) | payer OTHER, SELFPAY | PROVIDERS: PCP Internal Medicine; Referring Provider Internal Medicine; Visit Provider Registered Nurse | DX: G25.81 Restless legs syndrome (principal); G30.9 Alzheimer's disease, unspecified; F02.818 Dementia in other diseases classified elsewhere, unspecified severity, with other behavioral disturbance | CPT/HCPCS: 99212 ==

== ENCOUNTER 2025-03-23 15:22 | Outpatient (AMB) | payer OTHER, SELFPAY ==
--- NOTE | 2025-03-23 15:36 | A.OFFVIS_ITS ---
Intake Visit Reasons: 3 mnts f/u for AD Sustainability Project Coordinator Required: Yes Sustainability Project Coordinator Services: Sustainability Project Coordinator Offered & Declined (daughter to translate) Accompanied by: Daughter Allergies No Known Allergies Allergy (Verified 03/23/25 15:56) Medication List - Last Reconciled 03/23/25 by Alyson Villalobos CNP apixaban (Eliquis) 5 mg PO BID atorvastatin 10 mg PO DAILY cyanocobalamin (vitamin B-12) 1,000 mcg PO DAILY duloxetine 60 mg PO DAILY memantine 10 mg PO BID 90 days quetiapine 25 mg PO BID 90 days HPI Comments Details: 74-year-old woman with dementia (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 She was noted to be confused and forgetful and keeping the stove on when family decided to move her here for safety reasons. Since then, she has progressed with more of same symptoms of forgetfulness, confusion, difficulty speaking or coming up with right words, and inability to maintain a conversation with behavioral symptoms), and restless leg syndrome. While visiting her son in [place], she needed emergency surgery for colostomy in 07/2024 which was complicated by ?pneumonia and PE, and was on vent for period of time. After coming off vent, she had psychosis and did not sleep for weeks. She went to two rehabs in [place] before returning to [place] in 09/2024. Her daughter noted a significant decline in memory after the surgery. She was living with her daughter. She was doing okay. Memory was off and on, some days better than others. She was having some trouble adjusting to the time change. She was able to recognize her granddaughters, but sometimes got their names mixed up. She needed help dressing, as she would put clothes on backwards or inside out, and help with bathing. Sometimes she got stuck for words. Appetite was okay. She was going to day program Thursday to Thursday which she enjoyed. She was using walker there. She had a fall yesterday at home without injury that she did not remember. She sometimes wandered around the house, but does not try to leave. Mood was generally okay, but could be agitated at times. Sleep was okay, but her daughter could hear her talking in her sleep lately. She was occasionally incontinent of urine at night, using depends. [facility] Medical History (Updated 12/16/24 @ 09:55 by Alyson Villalobos CNP) RLS (restless legs syndrome) Alzheimer dementia Paraparesis Depression with anxiety Encephalopathy Review of Systems Const Denies chills, Denies daytime sleepiness, Denies difficulty sleeping, Denies fatigue, Denies fever(s), Denies frequent falls, Denies headache(s), Denies increased appetite, Denies poor appetite, Denies snoring, Denies weakness, Denies weight gain and Denies weight loss Eyes Denies loss of vision ENT Denies vertigo, Denies dizziness and Denies headache(s) Card Denies chest pain at rest, Denies chest pain with activity, Denies syncope, Denies leg edema and Denies palpitations Resp Denies snoring GI Denies constipation, Denies heartburn, Denies diarrhea and Denies nausea Denies urinary frequency, Denies urinary incontinence and Denies urinary urgency Musc Denies abnormal gait, Denies numbness and Denies tingling Skin/Breast Denies dry skin and Denies rash Neuro Denies abnormal gait, Denies vertigo, Denies dizziness, Denies syncope, Denies frequent falls, Denies headache(s), Denies lack of coordination, Denies loss of vision, Reports memory loss, Denies numbness, Reports restless legs, Denies seizure-like activity, Denies tingling, Denies paresthesias, Denies tremor(s) and Denies weakness Psych Denies anxiety, Denies depression, Denies auditory hallucinations, Reports memory loss, Denies visual hallucinations and Denies suicidal ideation Endo Denies fatigue and Denies palpitations Physical Exam Const Other: General Appearance:? normal, in no acute distress. Skin:? no rashes, no significant birthmarks. Heart:? S1, S2 normal, no murmurs. Lungs:? clear anteriorly and posteriorly. Extremities:? no edema. Psych:? alert, cooperative with exam. Neuro Other: Mental Status:?Affect is okay. She was able to tell me that she was here with her daughter and her daughter's name. She was able to tell me that her birthday was next month and she would be 75. Cranial Nerves:?Pupils are equal, round and reactive to light. External occular muscles are intact. Visual peterson are full. Face is symmetrical. Facial sensations are normal. Tongue is midline. Palate elevates symmetrically. Shoulder shrugging is normal. Hearing to bedside conversation is normal. Motor Examination:?DTRs trace to 1+ in upper extremities, 3+ in knees and ankles with flexor plantars. Harris sign absent. Sensory Exam:?....? Coordination:?No ataxia,?no titubation.? Gait Exam: Within normal limits. Cerebellar Signs:?[id number] is okay. Extrapyramidal System:?No tremor, rigidity with normal facial expressions.? Pronator Drift:?Not present.? Involuntary Movements:?No tremors seen.? Speech:?Normal.? Assessment & Plan Assessment & Plan (1) Alzheimer dementia: Code(s): G30.9 - Alzheimer's disease, unspecified; F02.80 - Dementia in other diseases classified elsewhere, unspecified severity, without behavioral disturbance, psychotic disturbance, mood disturbance, and anxiety Category: Medical Qualifiers: Alzheimer's disease onset: unspecified onset Dementia severity: unspecified severity Dementia behavioral or psychological symptom: with other behavioral disturbance Qualified Code(s): G30.9 - Alzheimer's disease, unspecified; F02.818 - Dementia in other diseases classified elsewhere, unspecified severity, with other behavioral disturbance Plan: Continue memantine 10mg 1 tablet twice a day. Increase quetiapine 25mg 1 tablet three a day. Stay physically and socially active. (2) RLS (restless legs syndrome): Code(s): G25.81 - Restless legs syndrome Category: Medical Plan . Medications: Changed From quetiapine 25 mg PO BID 90 days 180 tabs 1RF To quetiapine 25 mg PO TID 270 tabs 1RF 90 days Coding Level of Care Code Est Pt Level 4 (60896) Diagnoses Alzheimer's dementia with other behavioral disturbance, unspecified dementia severity, unspecified timing of dementia onset G30.9; F02.818 Alzheimer's disease onset: unspecified onset Dementia severity: unspecified severity Dementia behavioral or psychological symptom: with other behavioral disturbance RLS (restless legs syndrome) G25.81
--- OUTSIDE RECORDS SUMMARY | 2025-03-23 18:15 | XMS_ITS | Data Portability ---
Author Organization [facility], [facility] Address [address] [place] [phone] Care Team Providers Care Artist Scientific Name Role Phone HIM CCA Referring Provider Assessment Encounter Date Assessment Date Assessment LastModified by Organization Details LastModified Time 08/24/2023 08/24/2023 I have reviewed and agree with the assessment and plan as documented by the rn surgical pcu. I provided real-time medical direction for this encounter and was immediately available to provide additional phone-based assistance as needed. 73F presenting with bladder pressure, hematuria and intermittent right sided flank pain for the past 5 days. Pt denies any fever. Hx of UTI in May, followed by episode of hematuria that resolved. Pt is scheduled to see Urology next month. Denies any current abdominal pain, no fever, no vomiting, no diarrhea. No active bleeding. O/E: No fever, pt feeling well. Abdominal exam soft, non tender. U/A positive for blood and leukocytes no nitrites. No hx of CKD. Differential includes UTI, vs Stones, vs bladder etiology. Given hx of UTI and U/A results will treat for suspected UTI today. Pt has been on cefpodoxime in the past with good effect. Will re-prescribe and send urine to [facility] for culture. Keep urology appointment Monitor for worsening signs including pain, fever, severe hematuria. Follow up urine culture. Red flags and return precautions discussed. paysola Not available 08/24/2023 17:41:41 Plan of Treatment Reminders Order Date Submit Date Provider Last Modified By Organization Details Last Modified Time Details Appointments None recorded. Lab culture, urine 2023 04 024 T[facility] (Centralized Electronic Ordering - All Locations), Patient Can Go To The Location Of Their Choice, [id number] 06:08:03 Referral None recorded. Procedures None recorded. Surgeries None recorded. Imaging None recorded. Medication Orders cefpodoxime 100 mg tablet 2023 024 [facility]/Pharmacy #[id number], [address] [facility], [place], [address], 17:41:44 Patient TargetsNo targets recorded. Patient InstructionsNo instructions recorded. Reason for Referral None Reported. Results Created Date Observation Date Name Description Value Unit Range Abnormal Flag Note LastModifiedBy Organization Detail LastModifiedTime 08/24/1908/27/2023 URINE CULTU RE,CO MPREH ENSIV E urine culture,comp rehensive Final report Not Available [facility] ([facility]) [address] [facility], [place], [address], 08/27/2023 16:06:34 08/24/1908/27/2023 URINE CULTU RE,CO MPREH ENSIV E result 1 COMMEN T No growt h in 36 - 48 hours . Not Available [facility] ([facility]) [address] [facility], [place], [address], 08/27/2023 16:06:34 Result Notes None recorded. Medical Equipment None Reported. Medications Name Sig Start Date Stop Date Status Note LastModified by Organization Details LastModified Time quetiapine 25 mg tablet TAKE 1 TABLET BY MOUTH EVERY DAY AT BEDTIME FOR 90 DAYS active Not Available Not Available No t Available latanoprost 0.005 % eye drops INSTILL 1 DROP INTO BOTH EYES AT BEDTIME active Not Available Not Available N ot Available atorvastatin 10 mg tablet TAKE 1 TABLET BY MOUTH EVERY DAY active Not Available Not Available No t Available cefpodoxime 100 mg tablet TAKE 1 TABLET BY MOUTH EVERY 12 HOURS FOR 5 DAYS active Not Available Not Available N ot Available cyanocobalam in (vit B-12) 1,000 mcg tablet TAKE 1 TABLET BY MOUTH EVERY DAY active Not Available Not Available No t Available ketorolac 0.5 % eye drops INSTILL 1 DROP INTO OPERATIVE EYE 3 TIMES A DAY FOR 3 DAYS AFTER LASER active Not Available Not Available No t Available docusate sodium 100 mg capsule TAKE 1 CAPSULE BY MOUTH 2 TIMES A DAY NEEDED FOR CONSTIPATIO N active Not Available Not Available No t Available gabapentin 300 mg capsule TAKE 1 CAPSULE BY MOUTH TWICE A DAY active Not Available Not Available No t Available memantine 5 mg tablet TAKE 1 TABLET BY MOUTH TWICE A DAY FOR 30 DAYS active Not Available Not Available No t Available duloxetine 60 mg capsule,susan yed release TAKE 1 CAPSULE BY MOUTH EVERY DAY active Not Available Not Available No t Available GaviLyte-G 236 gram-22.74 gram-6.74 gram-5.86 gram oral solution TAKE 8 OUNCE BY MOUTH DIRECTED FOLLOW INSTRUCTION S PROVIDED TO YOU BY DOCTORS OFFICE active Not Available Not Available No t Available Vitals Date Recorded Oxygen saturation Oxygen saturation in Arterial blood by Pulse oximetry Body height Heart rate Body weight Respiratory rate Body temperature Systolic And Diastolic Provider Name and Address Organization Details Last Updated DateTime 4 98 % 98 % 160.02 cm 77 /min 60462.6 96 g 18 /min 97.8 [degF] 130/78 mm[Hg] Not Available [facility] - production 4 17:33:22 Social History None recorded. Functional Status None recorded. Mental Status None recorded. Family History Nothing Reported. Medical History No medical history recorded. Gynecological HistoryNo gynecological history recorded. Obstetrics History GPAL:G 0 P 0 0 0 0 Past Encounters Encounter ID Performer Location Encounter Start Date Encounter Closed Date Diagnosis/Indication Diagnosis SNOMED-CT Code Diagnosis ICD10 Code Diagnosis IMO Codes Diagnosis Note [id number] Mine Sorto MD Main - [facility] [address] [place] [phone] 08/24/2023 17:33:18 08/25/2023 10:16:47 Urinary symptoms 653932586 R39.9 Health Concerns Section Related Observation LastModified by Organization Detai ls LastModified Time None Recorded Concern Status LastModified by Organization Details LastModified Time None Recorded Advance Directives Directive None Recorded Payers Insurance Date Sequence Insurance Name Policy Number Policy Chaudhari Covered Member ID Chaudhari Member ID Guarantor Name 10/29/2024 1 [facility] - DOS ON OR AFTER 2022 - MEDICARE [place]VANTAGE [place]MED[place]ARE REPLACEMENT/ADV ANTAGE - PPO) Marychuy Taylor Colon [id number] Marychuy S Taylor Colon 10/29/2024 1 [facility] - DOS ON OR AFTER 2022 - DUAL ELIGIBLE - [employer] OPTIONS AND ONE CARE (MEDICARE REPLACEMENT/ADV ANTAGE - HMO) Marychuy Turcios [id number] Marychuy Taylor Colon Notes Date Note Type Note Provider Name and Address Organization Details Recorded Time 08/24/2023 text/html HPI: Blood spots after urinating and wiping. .................. .................. .................. .................. .................. .................. .................. ............... [facility] Nurse Triage Notes (Yasmeen Rossi): Chief Complaints: UTI/Pyelonephritis PMH: Severe Dementia, Other Allergies: No Known Comments: PMH: High Cholesterol, Neuropathy Hematuria. Member noticing with wiping after urinating. Ongoing for the past 5 days. Denies dysuria, abdominal or flank pain. Treated for UTI in May. Referred to Urologist for hematuria. Daughter to make a f/u appt with Urology. Denies fevers. .................. .................. .................. .................. .................. .................. .................. ............... Financial Reporting Specialist Note From Yashira Peter: Sent to a call for a pt complaining of hematuria. [facility]8 arrives on scene, pt is alert and oriented to baseline, airway is patent. Pt complains of hematuria x 1 week. Pt also complains of right side pelvic pain before bleeding/urination . Pt has had pelvic pain in past and family states pt had a negative ultrasound in May. Pt also had hematuria in May, not associated with a UTI. Family states pt was referred to Urology, but appt isn't until next month. Hematuria reportedly resolved and pt hasn't had any recurrence until 1 week ago. Pt denies flower, dizziness, cp, sob, n/v/d, dysuria, increased urinary frequency, incontinence, or fever. Pt has been eating/drinking normally. BP:130/78, P:77, RR:18, SpO2:98% RA, T:97.8; Head: unremarkable; Lung sounds: clear bilaterally; Abdomen: soft, non-tender, no distention; Back: unremarkable; Extremities: unremarkable; Skin: pink, warm, dry; Urine sample obtained; urine dip performed: results uploaded to [facility]. [facility] consulted and orders urine culture to be sent to [facility]. [facility] sends script to pt's pharmacy for Cefpodoxime. Red flags discussed. Pt/family advised to follow up with [facility] if symptoms persist/worsen. Family advised to keep appt with Urology next month. Pt/family have no further questions. .................. .................. .................. .................. .................. .................. .................. ............... Disposition: Tyrell Sorto MD [address] [facility], [place], [phone], [employer] [employer] 08/24/2023 19:25:31 OBGyn Episode No OBEpisode recorded.
== END 2025-03-23 16:31 | disposition home or self-care (01) ==
LOC: HO.HSM 15:23
PROVIDERS: PCP Internal Medicine; Visit Provider Registered Nurse
DX: G30.9 Alzheimer's disease, unspecified (principal); F02.818 Dementia in other diseases classified elsewhere, unspecified severity, with other behavioral disturbance; G25.81 Restless legs syndrome
CPT/HCPCS: 99214

== ENCOUNTER → 2025-03-23 15:22 | Outpatient (BNVA) | payer OTHER, SELFPAY | PROVIDERS: PCP Internal Medicine; Visit Provider Registered Nurse | DX: G25.81 Restless legs syndrome (principal); G30.9 Alzheimer's disease, unspecified; F02.818 Dementia in other diseases classified elsewhere, unspecified severity, with other behavioral disturbance | CPT/HCPCS: 99212 ==